=== PATIENT | female | born 1955 | race Caucasian/White ===

== ENCOUNTER 2018-10-17 12:21 | Emergency (ER) | payer BC ==
--- NOTE | 2018-10-17 14:22 | RADIOLOGY REPORT (SQ) ---
EXAM DESCRIPTION: ANKLE LEFT COMPLETE COMPLETED DATE/TIME: 10/17/2018 1:29 pm REASON FOR STUDY: fell 3weeks ago reinjured this am COMPARISON: None. NUMBER OF VIEWS: Three views. TECHNIQUE: AP, lateral, and oblique radiographic images acquired of the left ankle. LIMITATIONS: None. FINDINGS: MINERALIZATION: Normal. BONES: No definite fracture. There is a probable os peroneum adjacent to the lateral midfoot. Large plantar and Achilles calcaneal spurs. JOINTS: No effusions. SOFT TISSUES: No soft tissue swelling. No foreign body. OTHER: No other significant finding. IMPRESSION: 1. No definite fracture. There is a probable os peroneum adjacent to the lateral mid f oot, which is not well evaluated for cortication on the examination of the ankle. Correlate for refe rable point tenderness and consider dedicated radiographs of the foot. 2. Large plantar and Achilles calcaneal spurs. TECHNICAL DOCUMENTATION: JOB ID: [id number] [employer]- All Rights Reserved Reading location - IP/workstation name: [email or web address]
--- NOTE | 2018-10-17 14:30 | ER Document Report ---
ED Extremity Problem, Lower - General Chief Complaint: Ankle Injury Stated Complaint: ANKLE INJURY Time Seen by Provider: 10/17/18 12:52 Mode of Arrival: Wheelchair Information source: Patient Notes: 63-year-old female presented to ED for complaint of pain in her left ankle. She states 2 weeks before she tripped and fell and then last night she tripped over the door jam causing her ankle to swell. She thinks she is broken her ankle. Patient is alert oriented respirations regular and unlabored speaking in full sentences. She states she took Excedrin at 930 this morning and does not want more medicine at this time. TRAVEL OUTSIDE OF THE [place] IN LAST 30 DAYS: No - HPI Patient complains to provider of: Injury, Pain, Swelling Location: Ankle, Foot Occurred: Other - Fell 2 weeks before and then bumped it this morning Where: Home Onset/Duration: Gradual, Worse Quality of pain: Achy, Sharp Severity: Moderate Pain Level: 4 Context: Fell - 2 weeks before then tripped last night injuring her foot again Recent injury: Possibly Associated symptoms: Painful ambulation Exacerbated by: Hanging down, Movement, Walking Relieved by: Elevation, Ice, Rest - Related Data Allergies/Adverse Reactions: No Known Allergies Allergy (Verified 10/17/18 12:22) Past Medical History - General Information source: Patient - Social History Smoking Status: Never Smoker Cigarette use (# per day): No Chew tobacco use (# tins/day): No Smoking Education Provided: No Frequency of alcohol use: Rare Drug Abuse: None Lives with: Alone - With 16-year-old grandson Family History: Reviewed & Not Pertinent Patient has suicidal ideation: No Patient has homicidal ideation: No - Past Medical History Cardiac Medical History: Reports: Hx Hypertension Pulmonary Medical History: Reports: None EENT Medical History: Reports: None Neurological Medical History: Reports: None Endocrine Medical History: Reports: None Renal/ Medical History: Reports: None Malignancy Medical History: Reports: None GI Medical History: Reports: None Musculoskeletal Medical History: Reports Hx Arthritis, Reports Hx Fibromyalgia, Reports Hx Musculoskeletal Deformity, Reports Hx Musculoskeletal Trauma Skin Medical History: Reports None Psychiatric Medical History: Reports: Hx Anxiety, Hx Depression - anxiety insomnia, Other - Insomnia Traumatic Medical History: Reports: Hx Fractures - Right foot and ankle Infectious Medical History: Reports: None Past Surgical History: Reports: Hx Adenoidectomy, Hx Breast Surgery - cancer bilatereal mast/reconstruction, Hx Hysterectomy, Hx Mastectomy, Hx Orthopedic Surgery - left rotator cuff and left knee, Hx Tonsillectomy Review of Systems - Review of Systems Constitutional: No symptoms reported EENT: No symptoms reported Cardiovascular: No symptoms reported Respiratory: No symptoms reported Gastrointestinal: No symptoms reported Genitourinary: No symptoms reported Female Genitourinary: No symptoms reported Musculoskeletal: Other - Pain left ankle after she tripped 2 weeks before [place] states it got better than she tripped over the threshold last night and now her foot and ankle is swollen and more painful Skin: No symptoms reported Hematologic/Lymphatic: No symptoms reported Neurological/Psychological: No symptoms reported -: Yes All other systems reviewed and negative Physical Exam - Vital signs Vitals: Temp Pulse Resp BP Pulse Ox 97.8 F 76 20 103/63 99 10/17/18 12:35 10/17/18 12:35 10/17/18 12:35 10/17/18 12:35 10/17/18 12:35 Interpretation: Normal - General General appearance: Appears well, Alert - HEENT Head: Normocephalic, Atraumatic Eyes: Normal Pupils: PERRL - Respiratory Respiratory status: No respiratory distress Chest status: Nontender Breath sounds: Normal Chest palpation: Normal - Cardiovascular Rhythm: Regular Heart sounds: Normal auscultation Murmur: No - Abdominal Inspection: Normal Distension: No distension Bowel sounds: Normal Tenderness: Nontender Organomegaly: No organomegaly - Back Back: Normal, Nontender - Extremities General upper extremity: Normal inspection, Nontender, Normal color, Normal ROM, Normal temperature General lower extremity: Normal inspection, Normal color, Normal ROM, Normal temperature, Normal weight bearing. No: Nicole's sign Ankle: Tender, Edema, Unable to bear weight. No: Limited ROM - Neurological Neuro grossly intact: Yes Cognition: Normal Orientation: AAOx4 [place] Coma Scale Eye Opening: Spontaneous [place] Coma Scale Verbal: Oriented [place] Coma Scale Motor: Obeys Commands [place] Coma Scale Total: 15 Speech: Normal Motor strength normal: LUE, RUE, LLE, RLE Sensory: Normal - Psychological Associated symptoms: Normal affect, Normal mood - Skin Skin Temperature: Warm Skin Moisture: Dry Skin Color: Normal Course - Re-evaluation Re-evalutation: 10/17/18 19:23 X-rays discussed with patient and written report of x-rays given to patient to follow-up with orthopedics. Patient was treated with a posterior ankle splint and crutches. Patient verbalized understanding and agreement with treatment plan. Patient is to elevate and ice the ankle. A small amount of narcotics were given to the patient. Patient stated she was going home and elevate her ankle. She was given a prescription for the narcotics and a walker. - Vital Signs Vital signs: Temp Pulse Resp BP Pulse Ox 97.5 F 73 18 125/71 96 10/17/18 15:45 10/17/18 15:45 10/17/18 15:45 10/17/18 15:45 10/17/18 15:45 - Diagnostic Test Radiology reviewed: Image reviewed, Reports reviewed Procedures - Immobilization Left Ankle Time completed: 16:08 Pre-Proc Neuro Vasc Exam: Normal Immobilizer type: Posterior ankle Performed by: PCT Post-Proc Neuro Vasc Exam: Normal Alignment checked and good: Yes Discharge - Discharge Clinical Impression: Injury of peroneal tendon of left foot Qualifiers: Encounter type: initial encounter Qualified Code(s): S86.302A - Unspecified injury of muscle(s) and tendon(s) of peroneal muscle group at lower leg level, left leg, initial encounter Condition: Stable Disposition: HOME, SELF-CARE Instructions: Family Physicians / Practices Additional Instructions: Tendon Strain You have strained a tendon. "Strain" means stretching and partial tearing of the fibers of the tendon. This often occurs with strenuous exertion, or during an injury that suddenly stretches the tendon. The seriousness of a strain varies. Some strains heal within days, others cause problems for months. X-rays don't show a tendon strain. X-rays are taken only if symptoms suggest that a fracture could be present. The usual treatment of a tendon strain is rest and ice packs. Sometimes a sling, splint, or crutches may be necessary to rest the tendon. The area can be used again once pain subsides. Severe strains require a special exercise and stretching program to prevent permanent stiffness and disability. Your doctor will advise you if this will be necessary. Call the doctor immediately if pain or swelling becomes severe, or if numbness or discoloration develop. The x-ray shows a possible tendon injury and possible retraction of the peroneal tendon on your left ankle. You will be placed in a splint until you follow-up with orthopedics. Please call orthopedic promptly for this injury Avulsion Fracture of the Ankle There is a small chip fracture in your ankle. This fracture was caused by stretching the joint ligaments, which pulled off a small piece of bone. This injury is treated much the same as a severe sprain. At first, you should elevate, rest, and apply ice packs to the leg. Often, only an ankle brace or tape is necessary while the chip fracture heals. Sometimes a chip fracture of this type requires a cast or walking boot. The treatment plan may change, depending on how your ankle progresses. Chip fractures usually do not fuse back onto the bone, but rather scar down to the bone surface. You will most likely see this bone fragment on future x- rays. It's important that you follow the treatment program as outlined for now, then follow up for re-evaluation as scheduled. Call the doctor or return at once if pain or swelling becomes severe, or if you develop other unusual symptoms. Splint Pending Casting Your injury can't be casted until the swelling has subsided. Therefore, a temporary splint has been placed to protect the injury. Full use of an injured area is not possible in a splint. You should follow the doctor's instructions concerning rest, ice, and elevation of the injury. Never do anything which causes pain under the splint. Keep the splint on ALL THE TIME until you return for casting. If there is unexpected severe pain, or numbness, discoloration, or swelling beyond the splint, you should return at once. ICE & ELEVATION: Apply ice packs frequently against the painful area. Many different schedules are recommended, such as "20 minutes on, 20 minutes off" or "one hour ice, two hours rest." If you need to work, you may need to go longer between ice treatments. You should plan to have the area ice packed AT LEAST one-fourth of the time. The ice should be applied over the wrap, tape, or splint, or over a layer of cloth -- not directly against the skin. Some ice bags have a built-in cloth and can be put directly on the skin. Your injured part should be elevated as much as possible over the next 48 hours. Try to keep the injury above the level of the heart. Avoid use of the injured area. Elevation and rest will decrease the swelling. ORAL NARCOTIC MEDICATION: You have been given a prescription for pain control. This medication is a narcotic. It's best taken with food, as nausea can result if taken on an empty stomach. Don't operate machinery or drive within six hours of taking this medication. Do not combine this medicine with alcohol, or with any medication which can cause sedation (such as cold tablets or sleeping pills) unless you get permission from the physician. Narcotics tend to cause constipation. If possible, drink plenty of fluids and eat a diet high in fiber and fruits. Please be aware that prescription narcotics also have the potential for abuse. People become addicted to these medications because of the general sense of wellbeing that they induce. This feeling along with a significant reduction in tension, anxiety, and aggression provides a stimulating seductive quality to these drugs. Once your pain is under control, we encourage you to discard your unused narcotics. FOLLOW-UP CARE: If you have been referred to a physician for follow-up care, call the physicians office for an appointment as you were instructed or within the next two days. If you experience worsening or a significant change in your symptoms, notify the physician immediately or return to the Emergency Department at any time for re-evaluation. I have spoken with the orthopedic that is rehabilitation clerk for the emergency room he has suggested a posterior ankle splint. Dr. Pyle is who I spoke with but you state you prefer [facility] so. I have given you a CD of the x-rays that you can take them to [facility] or so for follow-up. Prescriptions: Hydrocodone/Acetaminophen [[place] 5-325 mg Tablet] 1 tab PO Q6HP PRN #7 tablet PRN Reason: Walker [Folding Walker] 1 each [facility] ASDIR PRN #1 each PRN Reason: Referrals: RHONDA CLIFFORD MD [ACTIVE STAFF] - Follow up as needed
[2018-10-17] MEDS ORDERED: HYDROCODONE/ACETAMINOPHEN 5-325 MG TABLET PO ONE (14:34)
--- NOTE | 2018-10-17 14:52 | RADIOLOGY REPORT (SQ) ---
EXAM DESCRIPTION: FOOT LEFT COMPLETE COMPLETED DATE/TIME: 10/17/2018 2:33 pm REASON FOR STUDY: pain and injury COMPARISON: None. NUMBER OF VIEWS: Three views. TECHNIQUE: AP, lateral and oblique radiographic images acquired of the left foot. LIMITATIONS: None. FINDINGS: MINERALIZATION: Normal. BONES: There is an os peroneus adjacent to the lateral calcaneus, which is well corticated. There is an additional small corticated osseous fragment adjacent to the base of the left 5th metatarsal. Mo derate osteoarthritis of the midfoot. Large plantar and Achilles calcaneal spurs. JOINTS: No effusions. SOFT TISSUES: No soft tissue swelling. No foreign body. OTHER: No other significant finding. IMPRESSION: 1. No acute fracture or dislocation of the left foot. 2. There is an os peroneus adjacent to the lateral calcaneus, which is well corticated and in an unus ually proximal position, suggestive of peroneal tendon injury and retraction, particularly in conjunc tion with an additional small corticated osseous fragment adjacent to the base of the left 5th metata rsal. MRI may be used to evaluate the integrity of the tendons and ligamentous structures of the ank le if indicated by signs and symptoms. TECHNICAL DOCUMENTATION: JOB ID: [id number] [employer]- All Rights Reserved Reading location - IP/workstation name: [email or web address]
[2018-10-17 15:46] VITALS: BP 125/71
== END 2018-10-17 16:13 | disposition home or self-care (01) ==
LOC: ER 12:21
PROC: 2W3RX1Z Immobilization of Left Lower Leg using Splint (ICD-10-PCS; principal; 2018-10-17)
DX: S86.302A Unspecified injury of muscle(s) and tendon(s) of peroneal muscle group at lower leg level, left leg, initial encounter (principal); M25.572 Pain in left ankle and joints of left foot; M79.89 Other specified soft tissue disorders; W01.0XXA Fall on same level from slipping, tripping and stumbling without subsequent striking against object, initial encounter; Z91.81 History of falling; I10 Essential (primary) hypertension
CPT/HCPCS: 99283